=== PATIENT | female | born 1930 | race Caucasian/White ===

== ENCOUNTER 2016-12-18 07:53 | Day surgery (SDC) | payer OTHER ==
[~2016-12-18] VITALS: Ht 165.1 cm; Wt 54.0 kg
[~2016-12-18 07:53] MED LIST: AMBIEN10 M1 PO; AMBIEN5 M1 PO; AQUAPHOR85 GM TP; CALCIUM 600 +1 EACH PO; CALTRATE600 MG PO; CELEXA10 M1 PO; DITROPAN XL10 MG PO; FUROSEMIDE20 MG PO; GINKGO BILOBA120 MG PO; GINKGO BILOBA60 M1 PO; HALOPERIDOL0.5 MG PO; LEVOTHROID,SYN0.1 MG PO; NAMENDA10 MG PO; OLANZAPINE2.5 MG PO; PRESERVISION A1 EACH PO; REMERON30 M2 PO; SYNTHROID100 MCG PO; TUMS300 MG PO; TYLENOL EXTRA500 MG PO; ZOLOFT25 MG PO
[2016-12-18 08:57] LABS: MCH 32.5 PG (29.0-34.0); MCHC 32.6 G/DL (30.0-36.0); MCV 99.8 FL (83-99); PLATELET COUNT 189 K/uL (156-360); RBC DIS.WIDTH-CV 13.8 % (11.8-14.6); RBC DIS.WIDTH-SD 50.5 % (39-53); RED BLOOD COUNT 4.61 M/uL (3.80-5.20); WHITE BLOOD COUNT 5.8 K/uL (4.1-10.2)
[2016-12-18 09:08] LABS: CHLORIDE 104 mEq/L (99-109); POTASSIUM 4.3 mEq/L (3.7-5.4); SODIUM 141 mEq/L (136-147)
[2016-12-18 09:10] LABS: GLUCOSE 96 mg/dL (70-99)
[2016-12-18 09:11] LABS: ANION GAP 6 MEQ/L (2-14)
[2016-12-18 09:14] LABS: GFR ESTIMATE (CALCULATED) > 59 mL/min/
[2016-12-18 09:15] LABS: UREA NITROGEN (BUN) 17 mg/dL (9-23)
[2016-12-18 09:38] VITALS: BP 194/74
[2016-12-18] MEDS ORDERED: ULTRAM50 MG PO (12:33)
[2016-12-18 12:50] LABS: METH RESISTANT S AUREUS PCR NEGATIVE (NEGATIVE); PROBE CHECK PASS; SPECIMEN PROCESSING CONTROL PASS
[2016-12-18 13:50] VITALS: BP 145/91
[2016-12-18 15:02] VITALS: BP 143/88
== END 2016-12-18 14:50 | disposition home or self-care (01) ==
LOC: SDC 07:53
PROVIDERS: Surgery
DX: C44.622 Squamous cell carcinoma of skin of right upper limb, including shoulder (principal); F03.90 Unspecified dementia, unspecified severity, without behavioral disturbance, psychotic disturbance, mood disturbance, and anxiety; K21.9 Gastro-esophageal reflux disease without esophagitis; E03.9 Hypothyroidism, unspecified; M81.0 Age-related osteoporosis without current pathological fracture; H35.30 Unspecified macular degeneration; Z96.659 Presence of unspecified artificial knee joint; Z88.8 Allergy status to other drugs, medicaments and biological substances; Z88.0 Allergy status to penicillin
CPT/HCPCS: 80048; 81003; 85027; 87641; 88305; 93005; J3370; J7120